=== PATIENT | female | born 1970 | race African-American/Black ===

== ENCOUNTER 2023-08-16 13:48 | Emergency (ER) | payer SELFPAY ==
--- OUTSIDE RECORDS SUMMARY | 2023-08-16 13:51 | XMS REPORT | Continuity of Care Document ---
:1970 Author Organization [facility] t Address [address] [place] [address] Care Team Providers Name Role Phone MOJGAN, MICHAEL Primary Care Physician Unavailable VENKATA DONAHUE Attending Clinician Unavailable MICHAEL ULRICH Attending Clinician Unavailable SHANE ABRAHAM Attending Clinician Unavailable RADHA MILIAN Attending Clinician Unavailable YOUNG RIOS Attending Clinician Unavailable NIMCO HANEY Attending Clinician Unavailable GANESH CARRASCO Attending Clinician Unavailable WILFREDO OLSEN Attending Clinician Unavailable JOCELYN ENGEL Attending Clinician Unavailable IMANI BEE Attending Clinician Unavailable BERNICE JEFFREY Attending Clinician Unavailable CECILIA JAIMES Attending Clinician Unavailable FERMIN RANDALL Attending Clinician Unavailable ROSAS MORALEZ Attending Clinician Unavailable ABBY KAMINSKI Attending Clinician Unavailable DONNY HERRON Attending Clinician Unavailable BO SHARP Attending Clinician Unavailable OZIEL FRAIRE Attending Clinician Unavailable BARBAAR FLORES Attending Clinician Unavailable Payers Payer Name Policy Type Policy Number Effective Date Expiration Date S ource Problems This patient has no known problems. Allergies, Adverse Reactions, Alerts This patient has no known allergies or adverse reactions. Medications This patient has no known medications. Procedures This patient has no known procedures. Encounters Start End Encounter Admission Attending Care Care Encounter Source Date/Time Date/Time Type Type Clinicians Facility Department ID 2023-08-16 2023-08-16 Outpatient DEEPTHI LACEY [id number] [place] 11:01:01 11:01:01 [id number] Philippe 2023-08-14 2023-08-14 Outpatient SFA SFA [facility] 14:38:38 14:38:38 [id number] Abiquiu 2023-08-09 2023-08-09 Outpatient SFA SFA Iam 08:50:19 08:50:19 [id number] F Abiquiu 2023-08-04 2023-08-04 Outpatient SFA SFA Iam 13:15:56 13:15:56 [id number] F Abiquiu 2023-07-31 2023-08-03 [facility] [id number] [place] 14:13:00 14:06:00 [facility] 2023-07-02 2023-07-31 [facility] [id number] [place] 13:35:00 09:45:00 [facility] 2023-07-24 2023-07-24 Outpatient MOJGAN [facility] [id number] [facility] 00:00:00 00:00:00 MICHAEL 2023-07-14 2023-07-14 Emergency [facility] [id number] [place] 19:16:00 22:21:00 [facility] 2023-07-14 2023-07-14 Emergency [facility] [id number] [place] 20:28:10 21:06:27 [facility] 2023-07-14 2023-07-14 Emergency [facility] [id number] [place] 20:16:27 21:04:59 [facility] 2023-07-12 2023-07-12 [facility] [id number] [place] 08:37:10 09:19:50 [facility] 2023-07-07 2023-07-07 Outpatient [facility] [id number] [facility] 09:19:55 09:29:08 2023-07-04 2023-07-04 Outpatient BLANCA [facility] [id number] [facility] 08:33:14 09:28:11 YOUNG 2023-06-25 2023-07-02 [facility] [id number] [place] 23:26:15 12:12:[address] [facility] 2023-06-13 2023-06-13 Outpatient FOSTER-JONAH [facility] [id number] [facility] 00:00:00 00:00:00 DA, GANESH 2023-06-12 2023-06-12 Outpatient MOJGAN, [facility] [id number] [facility] 00:00:00 00:00:00 MICHAEL 2023-06-09 2023-06-09 Outpatient NCHONKO, [facility] [id number] [facility] 09:55:37 09:55:37 YOUNG 2023-04-25 2023-04-25 Outpatient MOJGAN, [facility] [id number] [facility] 00:00:00 00:00:00 MICHAEL 2023-04-25 2023-04-25 Outpatient FOSTER-JONAH [facility] [id number] [facility] 00:00:00 00:00:00 DA, GANESH 2023-04-17 2023-04-17 Outpatient MOJGAN, [facility] [id number] [facility] 13:13:55 13:13:55 MICHAEL 2023-04-17 2023-04-17 Outpatient FOSTER-JONAH [facility] [id number] [facility] 13:13:21 13:13:21 DA, GANESH 2023-04-11 2023-04-11 Outpatient MOJGAN, [facility] [id number] [facility] 15:36:28 15:36:28 MICHAEL 2023-03-24 2023-03-24 Outpatient MOJGAN, [facility] [id number] [facility] 00:00:00 00:00:00 MICHAEL 2023-02-28 2023-02-28 Outpatient NCHONKO, [facility] [id number] [facility] 00:00:00 00:00:00 YOUNG 2023-02-28 2023-02-28 Outpatient MOJGAN, [facility] [id number] [facility] 00:00:00 00:00:00 MICHAEL 2023-02-27 2023-02-27 Outpatient FOSTER-JONAH [facility] [id number] [facility] 14:10:51 14:10:51 DA, GANESH 2023-02-27 2023-02-27 Outpatient NCHONKO, [facility] [id number] [facility] 00:00:00 00:00:00 YOUNG 2023-02-03 2023-02-03 Outpatient FOSTER-JONAH [facility] [id number] [facility] 00:00:00 00:00:00 DA, GANESH 2023-01-24 2023-01-24 Outpatient MOJGAN, [facility] [id number] [facility] 15:51:13 15:51:13 MICHAEL 2023-01-02 2023-01-02 Outpatient MOJGAN, [facility] [id number] [facility] 13:04:49 15:10:19 MICHAEL 2022-12-21 2022-12-21 Outpatient NCHONKO, [facility] [id number] [facility] 00:00:00 00:00:00 YOUNG 2022-12-16 2022-12-16 Outpatient NCHONKO, [facility] [id number] [facility] 00:00:00 00:00:00 YOUNG 2022-12-15 2022-12-15 Outpatient [facility] [id number] [facility] 13:46:33 14:07:32 2022-12-15 2022-12-15 Outpatient NCHONKO, [facility] [id number] [facility] 00:00:00 00:00:00 YOUNG 2022-11-17 2022-11-17 Outpatient NCHONKO, [facility] [id number] [facility] 14:56:20 16:04:15 [facility] 2022-11-17 2022-11-17 Outpatient MOJGAN, [facility] [id number] [facility] 00:00:00 00:00:00 [facility] 2022-09-22 2022-09-22 Outpatient VIPULANANDA [facility] [id number] [place] 00:00:00 00:00:00 [facility] 2022-09-01 2022-09-01 Out[facility] [id number] [place] 00:00:00 00:00:00 [facility] 2022-08-05 2022-08-05 Outpatient BEE, [facility] [id number] [place] 00:00:00 00:00:00 [facility] 2022-07-14 2022-07-14 Outpatient [facility], [facility] [id number] [place] 00:00:00 00:00:00 [facility] 2022-07-05 2022-07-05 Outpatient GILOTRA, [facility] [id number] [facility] 08:11:22 09:07:09 MUD 2022-06-29 2022-06-29 Outpatient MOJGAN, [facility] [id number] [facility] 00:00:00 00:00:00 [facility] 2022-06-27 2022-06-27 Outpatient MOJGAN, [facility] [id number] [facility] 00:00:00 00:00:00 [facility] 2022-06-20 2022-06-20 Outpatient MOJGAN, [facility] [id number] [facility] 00:00:00 00:00:00 [facility] 2022-06-13 2022-06-13 Outpatient 3 [facility] [id number] [place] 10:55:27 11:05:23 [facility] 2022-06-13 2022-06-13 Outpatient [facility] [id number] [place] 10:55:27 11:05:23 [facility] 2022-06-13 2022-06-13 [facility] [id number] [place] 08:25:42 10:29:04 [facility] 2022-06-13 2022-06-13 [facility] [id number] [place] 00:00:00 00:00:00 [facility] 2022-06-10 2022-06-10 Outpatient PRAKASH, FERMIN [facility] [id number] [place] 00:00:00 00:00:00 [facility] 2022-06-06 2022-06-06 Outpatient MOJGAN, [facility] [id number] [place] 07:28:36 23:59:00 [facility] 2022-06-01 2022-06-01 Outpatient MOJGAN, [facility] [id number] [facility] 13:42:07 15:26:04 [facility] 2022-05-29 2022-05-29 Emergency NAOMY, [facility] [id number] [place] 13:20:00 18:36:00 [facility]22-[facility] 2022-05-28 Emergency YAMILEX, [facility] [id number] [place] 22:27:00 06:50:00 [facility] 2022-05-27 2022-05-27 Emergency GOPAL, [facility] [id number] [place] 22:54:24 23:50:46 [facility] 2022-05-27 2022-05-27 Outpatient MOJGAN, [facility] [id number] [facility] 00:00:00 00:00:00 MICHAEL 2022-05-25 2022-05-25 Outpatient MOJGAN, [facility] [id number] [facility] 08:42:32 09:19:15 MICHAEL 2022-05-23 2022-05-23 Outpatient MOJGAN, [facility] [id number] [facility] 00:00:00 00:00:00 MICHAEL 2022-05-20 2022-05-20 Outpatient [facility] [id number] [facility] 00:00:00 00:00:00 2022-05-18 2022-05-18 Outpatient MOJGAN, [facility] [id number] [facility] 13:19:11 14:20:10 MICHAEL 2022-04-14 2022-04-14 [facility] [id number] [place] 16:04:09 23:59:00 [facility] 2022-03-25 2022-03-25 [facility] [id number] [place] 10:12:01 23:59:00 [facility] 2022-03-22 2022-03-22 [facility] [id number] [place] 17:13:56 23:59:00 [facility] 2022-01-18 2022-01-18 [facility] [id number] [place] 15:00:45 23:59:00 [facility] 2021-12-21 2021-12-[address] [facility] [id number] [place] 00:00:00 09:53:00 [facility] 2021-12-21 2021-12-21 [facility]patient [facility] [id number] [place] 13:38:58 23:59:00 [facility] Results Test Description Test Time Test Comments Results Result Comments Source HEPATITIS PANEL, DIAGNOSTIC 2023-08-15 05:48:21 Test Item Value Reference Range Interpretation Comme nts HEPATITIS A TOTAL AB (test NON-REACTIVE NON-REACTIVE code = 2725) HEPATITIS B SURF AG (test NON-REACTIVE NON-REACTIVE code = 2739) HEP B CORE TOTAL AB (test NON-REACTIVE NON-REACTIVE code = 2729) HEPATITIS B SURFACE AB (test REACTIVE NON-REACTIVE A code = 2737) HEPATITIS C ANTIBODY (test NON-REACTIVE NON-REACTIVE code = 4675) INTERPRETATION HEPATITIS A: (NOTE) Hepatitis A serology shows (test code = 2552) no eviden ce of past exposure to orcurrent in fection with hepatitis A vir us; patient not immune tohe patitis A. INTERPRETATION HEPATITIS B: (NOTE) Hepatitis B serology (test code = 61570) consiste nt with immunity to hepatitis Bfrom previous hepatitis B vac cination. INTERPRETATION HEPATITIS C: (NOTE) Hepatitis C serology shows (test code = 50589) no evide nce of exposure to hepatitisC viru s at this time. It can ta ke up to 12 months after ex posure tothe hepatitis C vir us for antibodies to b ecome detectable in t he blood in certain patient s. UNLESS OTHERWISE INDIC ATED, ALL TESTING PERFORM [facility], [facility]. [address] [place] [address] 9337 LABORATORY DIRE CTOR: HUI DEVINE M.D. CLIA NUMBER [id number] CAP ACCREDITATION N O. [id number] COMPREHENSIVE METABOLIC [id number] 06:20:07 Test Item Value Reference Range Interpretation Comments GLUCOSE (test code = 2217) 136 MG/DL 70-99 H BUN (test code = 2208) 10 MG/DL 6-20 CREATININE (test code = 2214) 0.83 MG/DL 0.60-1.30 eGFR (2020 CKD-EPI) (test code 83 ML/MIN/1.73 >60 = 95674) CALC BUN/CREAT (test code = 12 RATIO -2234) SODIUM (test code = 2231) 139 MEQ/L 133-146 POTASSIUM (test code = 2228) 4.4 MEQ/L 3.5-5.4 CHLORIDE (test code = 2215) 103 MEQ/L 95-107 CARBON DIOXIDE (test code = 25 MEQ/L -2205) CALCIUM (test code = 2209) 9.4 MG/DL 8.5-10.5 PROTEIN, TOTAL (test code = 6.8 G/DL 6.1-8.3 2228) ALBUMIN (test code = 220) 4.3 G/DL 3.5-5.2 CALC GLOBULIN (test code = 2.5 G/DL 1.9-3.7 2239) CALC A/G RATIO (test code = 1.7 RATIO 1.0-2.6 2233) BILIRUBIN, TOTAL (test code = 0.6 MG/DL <=1.2 2206) ALKALINE PHOSPHATASE (test 922 U/L 40-133 H code = 2203) AST (test code = 2218) 79 U/L 9-40 H ALT (test code = 2219) 241 U/L 5-40 H LIPID [id number] 06:20:07 Test Item Value Reference Range Interpretation Comments CHOLESTEROL (test 217 MG/DL <200 H code = 2210) TRIGLYCERIDES (test 177 MG/DL <150 H code = 2232) HDL CHOLESTEROL (test 57 MG/DL >39 code = 0) CALC LDL CHOL (test 129 MG/DL <100 H NOTE: C ALCULATED LDL code = 223) IS BASED ON ALEJANDRA-CEE METHOD WHICHINCLUDES ADJUSTABLE TRIGLYCERIDE:VL DL CHOLESTEROL RAT IO.THIS FACTOR VARIES B Y MEASURED TRIGLY CERIDE AND NON-HDLCHOL ESTEROL CONCENTRATIONS WITH INCREASED CALCU LATED LDL SEENIN HIGH ER TRIGLYCERIDE OR LOWER NON-HDL SPECIME NS. FOR MOREINFORMATION , SEE CLIENT ANNOUNCE MENT AT [email or web address] [email or web address] RATIO LDL/HDL 2.26 RATIO <3.22 UNLESS O THERWISE (test code = 223) INDICATED , [facility], I MD. [address] [place] [address] 18484 MARCELA FERRARI DIRECTOR: Stephanie COLLADO CECILIA NUMBER [id number] CAP ACCREDITATION N O. [id number] HIV 1+2 Ab+HIV1 p24 Ag SerPl Ql [id number] 17:23:16 Test Item Value Reference Range Interpretation Comments HIV 1+2 Ab+HIV1 p24 Ag SerPl Ql IA NEGATIVE Negative (test code = 99440-4) [facility]
[2023-08-16] MEDS ORDERED: NA CHLORIDE 0.9% 1,000 ML ONE (14:58)
[2023-08-16 15:01] LABS: Absolute Lymphocytes (CBC) 1.3 K/uL (0.7-4.9); Lymphocytes % 26.9 % (15.3-44.8); MCV 90.6 fL (80-100); Platelets 407 thou/uL (152-406); RBC Red Blood Cell Count 3.42 M/uL (3.86-4.86)
[2023-08-16 15:16] LABS: Albumin 3.3 g/dL (3.4-5.0); Bilirubin Total 0.4 mg/dL (0.2-1.0); Magnesium 2.2 mg/dL (1.6-2.4); Potassium 3.8 mEq/L (3.5-5.1); Protein, Total 6.8 g/dL (6.4-8.2)
--- NOTE | 2023-08-16 15:28 | RAD REPORT ---
EXAM DESCRIPTION: USExtremity Venous Uni Ltd08/16/2023 3:09 pm CLINICAL HISTORY: Right leg pain COMPARISON: None. FINDINGS: Right common femoral, superficial femoral, greater saphenous, popliteal and right posterio r tibial veins are compressible and demonstrate augmentation. Doppler demonstrates good flow. Grayscale, color and spectral analysis performed on all vessels IMPRESSION: No evidence of deep venous thrombosis involving the right lower extremity.
[2023-08-16 16:54] LABS: Blood Morphology Comment NOT SEEN (NOT SEEN); Platelet Estimate INCR; White Blood Cell Scan OK (OK)
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
--- NOTE | 2023-08-16 17:28 | EDPHYS ---
Physician Documentation [facility] Name: Jesusita Beltran Age: 53 yrs Sex: Female : 1970 Arrival Date: 08/16/2023 Time: 13:48 Bed 5 Private MD: ED Physician Sampson Shukla HPI: 08/16 20:31 This 53 yrs old Black Female presents to ER via Ambulatory with complaints of Headache, rt Leg Pain. 20:31 Patient presents to the ED with a pain behind the right knee starting this morning. She rt describes the numbness, is not pressure, she is able to hold completely now. Does report a headache that is off-and-on. Denies other acute complaints at this time, symptoms are mild in severity, no other aggravating or alleviating factors. Historical: - Allergies: 14:09 No Known Allergies; iw - Social history:: Smoking status: . ROS: 20:31 Constitutional: Negative for fever, chills, and weight loss, Cardiovascular: Negative rt for chest pain, palpitations, and edema, Respiratory: Negative for shortness of breath, cough, wheezing, and pleuritic chest pain, Abdomen/GI: Negative for abdominal pain, nausea, vomiting, diarrhea, and constipation, Skin: Negative for injury, rash, and discoloration, Neuro: Negative for headache, weakness, numbness, tingling, and seizure, Psych: Negative for depression, anxiety, suicide ideation, homicidal ideation, and hallucinations, 20:31 MS/extremity: Positive for pain, Negative for injury or acute deformity, 20:31 Neuro: Positive for headache, Negative for altered mental status, Exam: 20:31 Constitutional: This is a well developed, well nourished patient who is awake, alert, rt and in no acute distress. Head/Face: Normocephalic, atraumatic. Chest/axilla: Normal chest wall appearance and motion. Nontender with no deformity. No lesions are appreciated. Cardiovascular: Regular rate and rhythm with a normal S1 and S2. No gallops, murmurs, or rubs. Normal PMI, no JVD. No pulse deficits. Respiratory: Lungs have equal breath sounds bilaterally, clear to auscultation and percussion. No rales, rhonchi or wheezes noted. No increased work of breathing, no retractions or nasal flaring. Abdomen/GI: Soft, non-tender, with normal bowel sounds. No distension or tympany. No guarding or rebound. No evidence of tenderness throughout. Skin: Warm, dry with normal turgor. Normal color with no rashes, no lesions, and no evidence of cellulitis. MS/ Extremity: Pulses equal, no cyanosis. Neurovascular intact. Full, normal range of motion. Neuro: Awake and alert, GCS 15, oriented to person, place, time, and situation. Cranial nerves II-XII grossly intact. Motor strength 5/5 in all extremities. Sensory grossly intact. Cerebellar exam normal. Normal gait. Psych: Awake, alert, with orientation to person, place and time. Behavior, mood, and affect are within normal limits. 20:34 ECG was reviewed by the Attending Physician. rt Vital Signs: 14:06 BP 120 / 83; Pulse 94; Resp 16; Temp 98.2; Pulse Ox 100% on R/A; Weight 72.57 kg; iw Height 5 ft. 6 in. ; Pain 8/10; 17:31 BP 153 / 88; Pulse 87; Resp 16; Pulse Ox 98% on R/A; iw 14:06 Body Mass Index 25.82 (72.57 kg, 167.64 cm) iw 14:06 Pain Scale: Adult iw MDM: 14:13 Patient medically screened. rt 20:31 Differential diagnosis: DVT, muscle spasm, neuropathy. Data reviewed: vital signs, rt nurses notes, lab test result(s), radiologic studies. I considered the following discharge prescriptions or medication management in the emergency department Medications were administered in the Emergency Department. See MAR. Test considered but Not performed: CT: Symptoms not consistent with acute CVA, the patient also reports a chronic headache that is similar to this. Do not believe that neuroimaging is needed at this time. Counseling: I had a detailed discussion with the patient and/or guardian regarding the historical points, exam findings, and any diagnostic results supporting the discharge/admit diagnosis, lab results, radiology results, the need for outpatient follow up, to return to the emergency department if symptoms worsen or persist or if there are any questions or concerns that arise at home. 08/16 14: Order name: CBC with Diff; Complete Time: 17:10 rt 08/16 14: Order name: CMP; Complete Time: 15:47 rt 11/22 14:22 Order name: Magnesium; Complete Time: 15:47 rt 08/16 14:22 Order name: CPK; Complete Time: 15:47 rt 08/16 16:54 Order name: CBC Smear Scan; Complete Time: 17:10 EDMS 08/16 14:22 Order name: Extremity Venous Uni Ltd US; Complete Time: 15:33 rt 08/16 14:22 Order name: EKG; Complete Time: 14:22 rt 08/16 14:22 Order name: EKG - Nurse/Tech; Complete Time: 14:47 rt EC:34 Rate is 83 beats/min. Rhythm is regular, Normal Sinus Rhythm with No ectopy. QRS [place] rt is Normal. MT interval is normal. QRS interval is normal. QT interval is normal. No Q waves. T waves are Normal. No ST changes noted. Administered Medications: 14:46 Drug: NS 0.9% IV 1000 ml IV at 1 bolus Per protocol; 1000 mL bolus Route: IV; Rate: 1 cm10 bolus; Site: right forearm; 17:36 Drug: Ibuprofen PO 600 mg PO once Route: PO; iw Disposition Summary: 08/16/23 17:26 Discharge Ordered Notes: Location: Home rt Problem: new rt Symptoms: have improved rt Condition: Stable rt Diagnosis - Pain in right knee rt Followup: rt - With: Private Physician - When: 2 - 3 days - Reason: Discharge Instructions: - Discharge Summary Sheet rt - Acute Knee Pain, Adult rt Forms: - Medication Reconciliation Form rt - Thank You Letter rt - Antibiotic Education rt - Prescription Opioid Use rt - Patient Portal Instructions rt - Leadership Thank You Letter rt Prescriptions: - Hydrocortisone 0.5 % Topical Cream - apply 1 application TOPICAL route every 12 hours As needed; 30 gram; Refills: rt 0, Product Selection Permitted Signatures: Dispatcher [employer] Consuelo Diaz RN RN iw June Harvey RN RN ap3 Sampson Shukla MD MD rt Bere Foreman RN RN cm10
[2023-08-16] MEDS ORDERED: IBUPROFEN 200 MG TAB PO ONE (17:49)
[2023-08-16 17:52] VITALS: BP 120/83; TEMP 98.2; O2SAT 100
--- NOTE | 2023-08-21 17:01 | EKG ---
Test Date: 2023-08-16 Test Time: 14:41:25 Interactive Art Director: CHERRY MEASUREMENT RESULTS: Intervals: Rate: 83 PA: 142 QRSD: 82 QT: 404 QTc: 474 [place]: P: 39 PA: 142 QRS: 77 T: 80 INTERPRETIVE STATEMENTS: Normal sinus rhythm Normal ECG No previous ECG available for comparison Electronically Signed On 08-21-23 16:54:17 CORPORATE SAFETY COORDINATOR by Hoang Ramos
== END 2023-08-16 17:37 | disposition home or self-care (01) ==
LOC: ER 13:48
DX: M25.561 Pain in right knee (principal); R51.9 Headache, unspecified
CPT/HCPCS: 36415; 80053; 82550; 83735; 85025; 93005; 93971; 99284; J7030

== ENCOUNTER 2023-08-20 09:30 | Inpatient (IN) | payer SELFPAY ==
--- OUTSIDE RECORDS SUMMARY | 2023-08-20 09:33 | XMS REPORT | Continuity of Care Document ---
:1970 Author Organization [facility] t Address [address] [place] [address] Care Team Providers Name Role Phone MOJGAN, MICHAEL Primary Care Physician Unavailable VENKTAA DONAHUE Attending Clinician Unavailable MICHAEL ULRICH Attending [...] Clinician Unavailable FERMIN RANDALL Attending Clinician Unavailable ROASS MORALEZ Attending Clinician Unavailable ABBY KAMINSKI Attending Clinician Unavailable DONNY HERRON Attending Clinician Unavailable BO SHARP Attending Clinician Unavailable OZIEL FRAIRE Attending Clinician Unavailable BARBARA FLORES Attending Clinician Unavailable Payers Payer Name [...] Clinicians Facility Department ID 2023-08-16 2023-08-16 Outpatient [facility] [id number] [place] 11:01:01 11:01:01 [id number] [facility] [place] 2023-08-14 2023-08-14 Outpatient [facility] 14:38:38 14:38:38 [id number] [facility] [place] 2023-08-09 2023-08-09 Outpatient SFA [facility] 08:50:19 08:50:19 [id number] [facility] [place] 2023-08-04 2023-08-04 Outpatient SFA [facility] 13:15:56 13:15:56 [id number] [facility] [place] 2023-07-31 2023-08-03 [facility] [id number] [place] 14:13:00 14:06:00 [facility] 2023-07-02 2023-07-31 [facility] [id number] [place] 13:35:00 09:45:00 [facility] 2023-07-24 2023-07-24 Outpatient MOJGAN [facility] [id number] [facility] 00:00:00 00:00:00 MICHAEL 2023-07-14 2023-07-14 [facility] [id number] [place] 19:16:00 22:21:00 [facility] 2023-07-14 2023-07-14 Emergency [facility] [id number] [place] 20:28:10 21:06:27 [facility] 2023-07-14 2023-07-14 Emergency [facility] [id number] [place] 20:16:27 21:04:59 [facility] 2023-07-12 2023-07-12 [facility] [id number] [place] 08:37:10 09:19:50 [facility] 2023-07-07 2023-07-07 Outpatient [facility] [id number] [facility] 09:19:55 09:29:08 2023-07-04 2023-07-04 Outpatient BLANCA [facility] [id number] [facility] 08:33:14 09:28:11 YOUNG 2023-06-25 2023-07-02 [facility] [id number] [place] 23:26:15 12:12:00 [facility] 2023-06-13 2023-06-13 Outpatient FOSTER-JONAH [facility] [id number] [facility] 00:00:00 00:00:00 DA, GANESH 2023-06-12 2023-06-12 Outpatient MOJGAN, [facility] [id number] [facility] 00:00:00 00:00:00 MICHAEL 2023-06-09 2023-06-09 Outpatient NCHONKO, [facility] [id number] [place] 09:55:37 09:55:37 [facility] 2023-04-25 2023-04-25 Outpatient MOJGAN, [facility] [id number] [facility] 00:00:00 00:00:00 MICHAEL 2023-04-25 2023-04-25 Outpatient FOSTER-JONAH [facility] [id number] [facility] 00:00:00 00:00:00 DA, GANESH 2023-04-17 2023-04-17 Outpatient MOJGAN, [facility] [id number] [facility] 13:13:55 13:13:55 MICHAEL 2023-04-17 2023-04-17 Outpatient [facility]ER[facility]JONAH [facility] [id number] [facility] 13:13:21 13:13:21 DA, GANESH 2023-04-11 2023-04-11 Outpatient MOJGAN, [facility] [id number] [facility] 15:36:28 15:36:28 MICHAEL 2023-03-24 2023-03-24 Outpatient MOJGAN, [facility] [id number] [facility] 00:00:00 00:00:00 MICHAEL 2023-02-28 2023-02-28 Outpatient NCHONKO, [facility] [id number] [facility] 00:00:00 00:00:00 YOUNG 2023-02-28 2023-02-28 Outpatient MOJGAN, [facility] [id number] [facility] 00:00:00 00:00:00 MICHAEL 2023-02-27 2023-02-27 Outpatient FOSTER[facility]JONAH [facility] [id number] [facility] 14:10:51 14:10:51 DA, GANESH 2023-02-27 2023-02-27 Outpatient NCHONKO, [facility] [id number] [facility] 00:00:00 00:00:00 YOUNG 2023-02-03 2023-02-03 Outpatient FOSTER-JONAH [facility] [id number] [facility] 00:00:00 00:00:00 DA, GANESH 2023-01-24 2023-01-24 Outpatient MOJGAN, [facility] [id number] [facility] 15:51:13 15:51:13 MICHAEL 2023-01-02 2023-01-02 Outpatient MOJGAN, [facility] [id number] [facility] 13:04:49 15:10:19 [facility] 2022-12-21 2022-12-21 Outpatient NCHONKO, [facility] [id number] [facility] 00:00:00 00:00:00 YOUNG 2022-12-16 2022-12-16 Outpatient NCHONKO, [facility] [id number] [facility] 00:00:00 00:00:00 YOUNG 2022-12-15 2022-12-15 Outpatient [facility] [id number] [facility] 13:46:33 14:07:32 2022-12-15 2022-12-15 Outpatient NCHONKO, [facility] [id number] [facility] 00:00:00 00:00:00 YOUNG 2022-11-17 2022-11-17 Outpatient NCHONKO, [facility] [id number] [facility] 14:56:20 16:04:15 YOUNG 2022-11-17 2022-11-17 Outpatient MOJGAN, [facility] [id number] [facility] 00:00:00 00:00:00 [facility] 2022-09-22 2022-09-22 Outpatient VIPULANANDA [facility] [id number] [place] 00:00:00 00:00:00 [facility] 2022-09-01 2022-09-01 Outpatient [facility], [facility] [id number] [place] 00:00:00 00:00:00 [facility] 2022-08-05 2022-08-05 Outpatient CRISTAL, [facility] [id number] [place] 00:00:00 00:00:00 [facility] 2022-07-14 2022-07-14 Outpatient MAREN, [facility] [id number] [place] 00:00:00 00:00:00 [facility] 2022-07-05 2022-07-05 Outpatient GILOTRA, [facility] [id number] [facility] 08:11:22 09:07:09 MUD 2022-06-29 2022-06-29 Outpatient MOJGAN, [facility] [id number] [facility] 00:00:00 00:00:00 [facility] 2022-06-27 2022-06-27 Outpatient MOJGAN, [facility] [id number] [facility] 00:00:00 00:00:00 [facility] 2022-06-20 2022-06-20 Outpatient MOJGAN, [facility] [id number] [facility] 00:00:00 00:00:00 [facility] 2022-06-13 2022-06-13 Outpatient 3 [facility] [id number] [place] 10:55:27 11:05:23 [facility] 2022-06-13 2022-06-13 Outpatient [facility] [id number] [place] 10:55:27 11:05:23 [facility] 2022-06-13 2022-06-13 [facility] [id number] [place] 08:25:42 10:29:04 [facility] 2022-06-13 2022-06-13 [facility] [id number] [place] 00:00:00 00:00:00 [facility] 2022-06-10 2022-06-10 Outpatient FERMIN RANDALL [facility] [id number] [place] 00:00:00 00:00:00 [facility] 2022-06-06 2022-06-06 Outpatient MOJGAN, [facility] [id number] [place] 07:28:36 23:59:00 [facility] 2022-06-01 2022-06-01 Outpatient MOJGAN, [facility] [id number] [facility] 13:42:07 15:26:04 [facility] 2022-05-29 2022-05-29 Emergency NAOMY, [facility] [id number] [place] 13:20:00 18:36:00 ROSAS Rebolledo 2022-05-27 2022-05-28 Emergency YAMILEX, [facility] [id number] [place] 22:27:00 06:50:00 [facility] 2022-05-27 2022-05-27 Emergency GOPAL, [facility] [id number] [place] 22:54:24 23:50:46 [facility] 2022-05-27 2022-05-27 Outpatient MOJGAN, [facility] [id number] [facility] 00:00:00 00:00:00 MICHAEL 2022-05-25 2022-05-25 Outpatient MJOGAN, [facility] [id number] [facility] 08:42:32 09:19:15 MICHAEL 2022-05-23 2022-05-23 Outpatient MOJGAN, [facility] [id number] [facility] 00:00:00 00:00:00 [facility] 2022-05-20 2022-05-20 Outpatient [facility] [id number] [facility] 00:00:00 00:00:00 2022-05-18 2022-05-18 Outpatient MOJGAN, [facility] [id number] [facility] 13:19:11 14:20:10 [facility] 2022-04-14 2022-04-14 [facility] [id number] [place] 16:04:09 23:59:00 [facility] 2022-03-25 2022-03-25 [facility] [id number] [place] 10:12:01 23:59:00 [facility] 2022-03-22 2022-03-22 [id number] [place] 17:13:56 23:59:00 [facility] 2022-01-18 2022-01-18 [id number] [place] 15:00:45 23:59:00 [facility] 2021-12-21 2021-12-22 Emergency [facility] [id number] [place] 00:00:00 09:53:00 [facility] 2021-12-21 2021-12-21 Outpatient [facility] [id number] [place] 13:38:58 23:59:00 [facility] Results Test Description Test Time [...] (NOTE) Hepatitis B serology (test code = 97236) consiste nt with immunity to hepatitis Bfrom previous hepatitis B vac cination. INTERPRETATION HEPATITIS C: (NOTE) Hepatitis C serology shows (test code = 88405) no evide nce of exposure to hepatitisC viru s at this time. It can ta ke up to 12 months after ex posure tothe hepatitis C vir us for antibodies to b ecome detectable in t he blood in certain patient s. UNLESS OTHERWISE INDIC ATED, ALL TESTING PERFORM ED AT [facility]. [address] [place] [address] LABORATORY DIRE CTOR: HUI DEVINE M.D. CLIA NUMBER [id number] CAP ACCREDITATION N O. [id number] COMPREHENSIVE METABOLIC [id number] 06:20:07 Test Item Value Reference Range Interpretation Comments GLUCOSE (test code = 2217) 136 MG/DL 70-99 H BUN (test code = 2208) 10 MG/DL 6-20 CREATININE (test code = 2214) 0.83 MG/DL 0.60-1.30 eGFR (2020 CKD-EPI) (test code 83 ML/MIN/1.73 >60 = 11987) CALC BUN/CREAT (test code = 12 RATIO -2234) SODIUM (test code = 2231) 139 MEQ/L 133-146 POTASSIUM (test code = 2228) 4.4 MEQ/L 3.5-5.4 CHLORIDE (test code = 2215) 103 MEQ/L 95-107 CARBON DIOXIDE (test code = 25 MEQ/L -2205) CALCIUM (test code = 2209) 9.4 MG/DL 8.5-10.5 PROTEIN, TOTAL (test code = 6.8 G/DL 6.1-8.3 2228) ALBUMIN (test code = 2201) 4.3 G/DL 3.5-5.2 CALC GLOBULIN (test code = 2.5 G/DL 1.9-3.7 2239) CALC A/G RATIO (test code = 1.7 RATIO 1.0-2.6 2233) BILIRUBIN, TOTAL (test code = 0.6 MG/DL <=1.2 2206) ALKALINE PHOSPHATASE (test 922 U/L 40-133 H code = 2204) AST (test code = 2218) 79 U/L 9-40 H ALT (test code = 2219) 241 U/L 5-40 H LIPID [id number] 06:20:07 Test Item Value Reference Range Interpretation Comments CHOLESTEROL (test 217 MG/DL <200 H code = 2210) TRIGLYCERIDES (test 177 MG/DL <150 H code = 2232) HDL CHOLESTEROL (test 57 MG/DL >39 code = 2220) CALC LDL CHOL (test 129 MG/DL <100 H NOTE: C ALCULATED LDL code = 2237) IS BASED ON ALEJANRDA-CEE METHOD WHICHINCLUDES ADJUSTABLE TRIGLYCERIDE:VL DL CHOLESTEROL RAT IO.THIS FACTOR VARIES B Y MEASURED TRIGLY CERIDE AND NON-HDLCHOL ESTEROL CONCENTRATIONS WITH INCREASED CALCU LATED LDL SEENIN HIGH ER TRIGLYCERIDE OR LOWER NON-HDL SPECIME NS. FOR MOREINFORMATION , SEE CLIENT ANNOUNCE MENT AT [email or web address] RISK RATIO LDL/HDL 2.26 RATIO <3.22 UNLESS O THERWISE (test code = 2238) INDICATED , ALL TESTING PERFORMED AT [facility] [place] [place] [address] MARCELA FERRARI DIRECTOR: Stephanie COLLADO CECILIA NUMBER [id number] CAP ACCREDITATION N O. [id number] HIV 1+2 Ab+HIV1 p24 Ag SerPl Ql [id number] 17:23:16 Test Item Value Reference Range Interpretation Comments HIV 1+2 Ab+HIV1 p24 Ag SerPl Ql IA NEGATIVE Negative (test code = 63713-1) [facility]
[2023-08-20] MEDS ORDERED: NA CHLORIDE 0.9% 1,000 ML ONE (10:02)
--- NOTE | 2023-08-20 10:44 | RAD REPORT ---
EXAM DESCRIPTION: CT - Head Brain Wo Cont - 08/20/2023 10:15 am CLINICAL HISTORY: DIZZINESS COMPARISON: No comparisons TECHNIQUE: Noncontrast head CT images were obtained without IV contrast. Multiplanar reformats were generated and reviewed. All CT scans are performed using dose optimization technique as appropriate and may include automated exposure control or mA/KV adjustment according to patient size. FINDINGS: No intracranial hemorrhage, mass, or edema. Midline structures are unremarkable. Normal ventricular caliber for age. Quesada-white matter differentiation is preserved, without evidence of acute infarct. No abnormal extra- axial fluid collections. Mastoid air cells and visualized portions of the paranasal sinuses are clear. No acute bony findings. IMPRESSION: No evidence of an acute intracranial process.
--- NOTE | 2023-08-20 10:46 | RAD REPORT ---
EXAM DESCRIPTION: Ruth Ann Single View08/20/2023 10:23 am CLINICAL HISTORY: dizzy COMPARISON: No comparisons TECHNIQUE: Portable AP view of the chest. FINDINGS: Kyphotic posture somewhat limits evaluation. The lungs are clear. No pneumothorax or eff usion. The cardiomediastinal contours are unremarkable. IMPRESSION: No acute cardiopulmonary process.
[2023-08-20 11:34] LABS: Absolute Lymphocytes (CBC) 1.3 K/uL (0.7-4.9); Hematocrit 33.3 % (36.0-45.0); Lymphocytes % 18.4 % (15.3-44.8); MCV 90.6 fL (80-100); MPV 7.4 fL (7.6-11.3); Platelets 471 thou/uL (152-406); RBC Red Blood Cell Count 3.67 M/uL (3.86-4.86)
[2023-08-20 11:42] LABS: Protime INR 1.05
[2023-08-20 11:56] LABS: Albumin 2.9 g/dL (3.4-5.0); Bilirubin Direct 0.3 mg/dL (0-0.2); Bilirubin Indirect, Calculated 0.2 mg/dL (0.2-0.8); Bilirubin Total 0.5 mg/dL (0.2-1.0); Magnesium 2.4 mg/dL (1.6-2.4); Potassium 4.2 mEq/L (3.5-5.1); Protein, Total 6.2 g/dL (6.4-8.2); Troponin High Sensitivity 25.4 pg/mL (<58.9)
[2023-08-20 12:05] LABS: Blood Morphology Comment NOT SEEN (NOT SEEN); Platelet Estimate ADEQ; White Blood Cell Scan OK (OK)
--- NOTE | 2023-08-20 12:12 | ER ---
Nurse's Notes [facility] Name: Jesusita Beltran Age: 53 yrs Sex: Female : 1970 Arrival Date: 08/20/2023 Time: 09:30 Bed 6 Private MD: None, None Diagnosis: Acute kidney failure, unspecified;Dehydration;Hypotension, unspecified;Hypotension due to drugs;Weakness;Syncope Near Presentation: 08/20 09:35 Chief complaint: EMS states: Pt from [facility] rehab, c/o intermittent ph dizziness/weakness x approx 2 weeks, BP low at 77/53, hx of HTN, pt states that the facility checks er BP before giving meds and have been giving her half of her normal dose, denies N/V/D, pain or fever. other VSS, HR 95, T 98.7, 98% RA, BGL 91. Coronavirus screen: Vaccine status: Patient reports receiving the 2nd dose of the covid vaccine. Ebola Screen: No symptoms or risks identified at this time. Initial Sepsis Screen: Does the patient meet any 2 criteria? No. Patient's initial sepsis screen is negative. Does the patient have a suspected source of infection? No. Patient's initial sepsis screen is negative. Risk Assessment: Do you want to hurt yourself or someone else? Patient reports no desire to harm self or others. Onset of symptoms was August 20, 2023. 09:35 Acuity: KRISTI 2 ph 09:35 Method Of Arrival: EMS: [facility] Triage Assessment: 09:43 General: Appears in no apparent distress. comfortable, Behavior is calm, cooperative, ph appropriate for age, Denies fever, feeling ill. Pain: Denies pain. Neuro: Level of Consciousness is awake, alert, obeys commands, Oriented to person, place, time, situation, Reports dizziness, weakness intermittent x 2 weeks. Cardiovascular: Reports fatigue, lightheadedness, Denies chest pain, nausea, palpitations, shortness of breath, syncope, vomiting, Capillary refill < 3 seconds in bilateral fingers Patient's skin is warm and dry. Respiratory: Airway is patent Respiratory effort is even, unlabored, Respiratory pattern is regular, symmetrical. GI: No signs and/or symptoms were reported involving the gastrointestinal system. Patient currently denies abdominal pain, diarrhea, nausea, vomiting. Derm: Skin is pink, warm \T\ dry. Historical: - Allergies: 09:41 PENICILLINS; ph - PMHx: 09:41 Hypertensive disorder; ph - Immunization history:: Adult Immunizations unknown. - Social history:: Smoking status: Patient reports the use of cigarette tobacco products, denies chronic smoking, but will smoke occasionally, Reported history of juuling and/or vaping. - Family history:: not pertinent. Screenin:42 [facility] ED Fall Risk Assessment (Adult) History of falling in the last 3 months, ph including since admission No falls in past 3 months (0 pts). Abuse screen: Denies threats or abuse. Denies injuries from another. Nutritional screening: No deficits noted. Tuberculosis screening: No symptoms or risk factors identified. Assessment: 10:07 General: SEE TRIAGE ASSESSMENT. ph 11:30 Reassessment: Patient appears in no apparent distress at this time. Patient and/or hb family updated on plan of care and expected duration. Pain level reassessed. Patient is alert, oriented x 3, equal unlabored respirations, skin warm/dry/pink. 12:18 Reassessment: Patient appears in no apparent distress at this time. Patient and/or ph family updated on plan of care and expected duration. Pain level reassessed. Patient is alert, oriented x 3, equal unlabored respirations, skin warm/dry/pink. Pt taken to CT via stretcher. Vital Signs: 09:35 BP 83 / 40; Pulse 81; Resp 18; Temp 98.7; Pulse Ox 96% on R/A; Weight 72.57 kg; Height ph 5 ft. 6 in. ; Pain 0/10; 09:42 BP 90 / 62; ph 10:08 BP 120 / 72; Pulse 94; Resp 18; Pulse Ox 98% ; ph 12:35 BP 105 / 69; Pulse 90; Resp 18; Pulse Ox 100% on R/A; ph 09:35 Body Mass Index 25.82 (72.57 kg, 167.64 cm) ph 09:35 Pain Scale: Adult ph Llewellyn Coma Score: 11:13 Eye Response: spontaneous(4). Motor Response: obeys commands(6). Verbal Response: bobo oriented(5). Total: 15. NIH Stroke Scale Scores: 11:13 NIHSS Score: 0 bobo ED Course: :33 Patient arrived in ED. as 09:34 None, None is Private Physician. as 09:40 Harley Harrell MD is Attending Physician. bobo 09:41 Triage completed. ph 09:42 Patient has correct armband on for positive identification. Bed in low position. Call ph light in reach. Side rails up X2. Client placed on continuous cardiac and pulse oximetry monitoring. NIBP monitoring applied. Door closed. Noise minimized. Warm blanket given. 09:43 Arm band placed on Patient placed in an exam room, on a stretcher, on furnace mechanic helper, ph on pulse oximetry. 10:07 Shireen Wu, RN is Primary Nurse. ph 10:08 EKG done, by ED staff, reviewed by Harley Harrell MD. Missed attempt(s): 20 gauge in ph left antecubital area. Bleeding controlled, band aid applied, catheter tip intact. Inserted saline lock: 22 gauge in left antecubital area, using aseptic technique. 10:17 CT Head Brain wo Cont In Process Unspecified. EDMS 10:25 XRAY Chest (1 view) In Process Unspecified. EDMS 12:07 Fredi Atkinson MD is Hospitalizing Provider. bobo 12:17 US Extremity Venous W Compression Jesus In Process Unspecified. EDMS 12:25 CT Chest Abdomen Pelvis W/O Contrast In Process Unspecified. EDMS 19:29 Primary Nurse role handed off by Shireen Wu RN bp 19:29 Odilon Ward, KAMILAH is Primary Nurse. bp Administered Medications: 10:15 Drug: NS 0.9% IV 1000 ml IV at 1 bolus Per protocol; 1000 mL bolus Route: IV; Rate: 1 ph bolus; Site: left antecubital; Medication: 09:42 VIS not applicable for this client. ph Outcome: 12:12 Decision to Hospitalize by Provider. bobo 21:56 Patient left the ED. bp NIH Stroke Scale - NIH Stroke Score Date: 08/20/2023 Time: 11:13 Total Score = 0 10. Dysarthria (speech clarity - read or repeat words) - 0(Normal) 11. Extinction and Inattention (visual/tactile/auditory/spatial/personal) - 0(No abnormality) 1a. Level of Consciousness (LOC) - 0(Alert) 1b. Level of Consciousness (LOC) (Month \T\ Age) - 0(Both) 1c. LOC Commands (Open \T\ Closes Eyes/Door Captain) - 0(Both) 2. Best Gaze (Lateral Gaze Paresis) - 0(Normal) 3. Visual Field Loss - 0(No visual loss) 4. Facial Palsy - 0(Normal) 5a. Left Arm: Motor (10-second hold) - 0(No drift) 5b. Right Arm: Motor (10-second hold) - 0(No drift) 6a. Left Leg: Motor (5-second hold - always test supine) - 0(No drift) 6b. Right Leg: Motor (5-second hold - always test supine) - 0(No drift) 7. Limb Ataxia (finger/nose \T\ heel/flores - test with eyes open) - 0(Absent) 8. Sensory Loss (pinprick arms/legs/face) - 0(Normal) 9. Best Language: Aphasia (description/naming/reading) - 0(No aphasia) Initials: bobo Signatures: Dispatcher [employer] Harley Boucher MD MD cha Martinez, Amelia as Hall, Patricia, RN RN Ruthie Tong RN RN hb Peltier, Brian, RN RN bp Corrections: (The following items were deleted from the chart) 09:42 09:41 Allergies: No Known Allergies; [facility]
--- NOTE | 2023-08-20 12:12 | EDPHYS ---
Physician Documentation [facility] Name: Jesusita Beltran Age: 53 yrs Sex: Female : 1970 Arrival Date: 08/20/2023 Time: 09:30 Bed 6 Private MD: None, None ED Physician Harley Harrell HPI: 08/20 09:49 This 53 yrs old Black Female presents to ER via EMS with complaints of Dizziness. bobo 09:49 The patient presents with dizziness, generalized weakness, lightheadedness. Onset: The bobo symptoms/episode began/occurred just prior to arrival, today. Context: occurred rehab. Modifying factors: The symptoms are alleviated by nothing, the symptoms are aggravated by nothing. Associated signs and symptoms: The patient has no apparent associated signs or symptoms. Severity of symptoms: At their worst the symptoms were moderate in the emergency department the symptoms are unchanged. Patient's baseline: Neuro: alert and fully oriented. The patient has experienced similar episodes in the past, a few times. Historical: - Allergies: 09:41 PENICILLINS; ph - PMHx: 09:41 Hypertensive disorder; ph - Immunization history:: Adult Immunizations unknown. - Social history:: Smoking status: Patient reports the use of cigarette tobacco products, denies chronic smoking, but will smoke occasionally, Reported history of juuling and/or vaping. - Family history:: not pertinent. ROS: 09:49 Constitutional: Negative for fever, chills, and weight loss, Eyes: Negative for injury, bobo pain, redness, and discharge, ENT: Negative for injury, pain, and discharge, Neck: Negative for injury, pain, and swelling, Cardiovascular: Negative for chest pain, palpitations, and edema, Respiratory: Negative for shortness of breath, cough, wheezing, and pleuritic chest pain, Abdomen/GI: Negative for abdominal pain, nausea, vomiting, diarrhea, and constipation, Back: Negative for injury and pain, : Negative for injury, bleeding, discharge, and swelling, MS/Extremity: Negative for injury and deformity, Skin: Negative for injury, rash, and discoloration, Psych: Negative for depression, anxiety, suicide ideation, homicidal ideation, and hallucinations, Allergy/Immunology: Negative for hives, rash, and allergies, Endocrine: Negative for neck swelling, polydipsia, polyuria, polyphagia, and marked weight changes, Hematologic/Lymphatic: Negative for swollen nodes, abnormal bleeding, and unusual bruising, 09:49 Neuro: Positive for dizziness, weakness, Exam: 09:49 Constitutional: This is a well developed, well nourished patient who is awake, alert, bobo and in no acute distress. Head/Face: Normocephalic, atraumatic. Eyes: Pupils equal round and reactive to light, extra-ocular motions intact. Lids and lashes normal. Conjunctiva and sclera are non-icteric and not injected. Cornea within normal limits. Periorbital areas with no swelling, redness, or edema. ENT: Nares patent. No nasal discharge, no septal abnormalities noted. Tympanic membranes are normal and external auditory canals are clear. Oropharynx with no redness, swelling, or masses, exudates, or evidence of obstruction, uvula midline. Mucous membranes moist. Neck: Trachea midline, no thyromegaly or masses palpated, and no cervical lymphadenopathy. Supple, full range of motion without nuchal rigidity, or vertebral point tenderness. No Meningismus. Chest/axilla: Normal chest wall appearance and motion. Nontender with no deformity. No lesions are appreciated. Cardiovascular: Regular rate and rhythm with a normal S1 and S2. No gallops, murmurs, or rubs. Normal PMI, no JVD. No pulse deficits. Respiratory: Lungs have equal breath sounds bilaterally, clear to auscultation and percussion. No rales, rhonchi or wheezes noted. No increased work of breathing, no retractions or nasal flaring. Abdomen/GI: Soft, non-tender, with normal bowel sounds. No distension or tympany. No guarding or rebound. No evidence of tenderness throughout. Back: No spinal tenderness. No costovertebral tenderness. Full range of motion. Skin: Warm, dry with normal turgor. Normal color with no rashes, no lesions, and no evidence of cellulitis. MS/ Extremity: Pulses equal, no cyanosis. Neurovascular intact. Full, normal range of motion. Neuro: Awake and alert, GCS 15, oriented to person, place, time, and situation. Cranial nerves II-XII grossly intact. Motor strength 5/5 in all extremities. Sensory grossly intact. Cerebellar exam normal. Normal gait. Psych: Awake, alert, with orientation to person, place and time. Behavior, mood, and affect are within normal limits. 09:49 Musculoskeletal/extremity: DVT Exam: No signs of deep vein thrombosis. no pain, no swelling, no tenderness, negative Homans' sign noted on exam, no appreciated bluish discoloration, no erythema, no increased warmth, 11:14 ECG was reviewed by the Attending Physician. bobo Vital Signs: 09:35 BP 83 / 40; Pulse 81; Resp 18; Temp 98.7; Pulse Ox 96% on R/A; Weight 72.57 kg; Height ph 5 ft. 6 in. ; Pain 0/10; 09:42 BP 90 / 62; ph 10:08 BP 120 / 72; Pulse 94; Resp 18; Pulse Ox 98% ; ph 12:35 BP 105 / 69; Pulse 90; Resp 18; Pulse Ox 100% on R/A; ph 09:35 Body Mass Index 25.82 (72.57 kg, 167.64 cm) ph 09:35 Pain Scale: Adult ph NIH Stroke Scale Scores: 11:13 NIHSS Score: 0 bobo Maren Coma Score: 11:13 Eye Response: spontaneous(4). Motor Response: obeys commands(6). Verbal Response: bobo oriented(5). Total: 15. MDM: 09:40 Patient medically screened. bobo 09:51 Differential diagnosis: cardiac arrhythmia, CVA, generalized weakness, GI bleed, bobo hypovolemia, idiopathic dizziness, near-syncope, TIA, vertigo. Data reviewed: vital signs, nurses notes, lab test result(s), EKG, radiologic studies, CT scan, plain films. Consideration of Admission/Observation Escalation of care including admission/observation considered. I considered the following discharge prescriptions or medication management in the emergency department Medications were administered in the Emergency Department. See MAR. Independent interpretation of the following test(s) in the Emergency Department EKG: See my EKG interpretation above. Test considered but Not performed: Ultrasound no 2 d echo. Care significantly affected by the following chronic conditions: Hypertension. 08/20 09:42 Order name: Basic Metabolic Panel; Complete Time: 11:59 [facility] 08/20 09:42 Order name: CBC with Diff; Complete Time: 12:52 [facility] 08/20 09:42 Order name: LFT's; Complete Time: 11:59 [facility] 08/20 09:42 Order name: Magnesium; Complete Time: 11:59 [facility] 08/20 09:42 Order name: NT PRO-BNP; Complete Time: 11:59 [facility] 08/20 09:42 Order name: Troponin HS; Complete Time: 11:59 [facility] 08/20 09:42 Order name: Lipase; Complete Time: 11:59 [facility] 08/20 09:42 Order name: Urinalysis w/ reflexes [facility] 08/20 09:48 Order name: UDS [facility] 08/20 09:48 Order name: D-Dimer; Complete Time: 11:53 [facility] 08/20 09:48 Order name: PREGU [facility] 08/20 11:33 Order name: Protime (+INR); Complete Time: 11:53 EDMS 08/20 12:05 Order name: CBC Smear Scan; Complete Time: 12:52 EDMS 08/20 13:47 Order name: CBC with Automated Diff [facility] 08/20 13:47 Order name: CBC with Automated Diff EDMS 08/20 13:47 Order name: Comprehensive Metabolic Panel [facility] 08/20 13:47 Order name: Comprehensive Metabolic Panel [facility] 08/20 13:47 Order name: Magnesium [facility] 08/20 13:47 Order name: Magnesium [facility] 08/20 09:42 Order name: XRAY Chest (1 view); Complete Time: 10:56 [facility] 08/20 09:49 Order name: CT Head Brain wo Cont; Complete Time: 10:56 [facility] 08/20 11:58 Order name: US Extremity Venous W Compression Jesus; Complete Time: 13:27 [facility] 08/20 12:03 Order name: CT Chest Abdomen Pelvis W/O Contrast; Complete Time: 13:27 [facility] 08/20 09:42 Order name: EKG; Complete Time: 09:43 [facility] 08/20 09:42 Order name: Cardiac monitoring; Complete Time: 09:44 [facility] 08/20 09:42 Order name: EKG - Nurse/Tech; Complete Time: 11:40 [facility] 08/20 09:42 Order name: IV Saline Lock; Complete Time: 11:40 [facility] 08/20 09:42 Order name: Labs collected and sent; Complete Time: 11:40 [facility] 08/20 09:42 Order name: O2 Per Protocol; Complete Time: 09:44 [facility] 08/20 09:42 Order name: O2 Sat Monitoring; Complete Time: 09:44 [facility] EC:14 Rate is 92 beats/min. Rhythm is regular. QRS Hurst is Normal. CA interval is normal. QT bobo interval is normal. No Q waves. T waves are Normal. No ST changes noted. Clinical impression: NSR w/ Non-specific ST/T Changes and No evidence of ischemia. Interpreted by me. Reviewed by me. Administered Medications: 10:15 Drug: NS 0.9% IV 1000 ml IV at 1 bolus Per protocol; 1000 mL bolus Route: IV; Rate: 1 ph bolus; Site: left antecubital; Disposition Summary: 08/20/23 12:12 Hospitalization Ordered Notes: Hospitalization Status: Inpatient Admission bobo Provider: Fredi Atkinson cha Condition: Fair bobo Problem: new bobo Symptoms: have improved bobo Bed/Room Type: Standard bobo Location: Telemetry/MedSurg (observation)(08/20/23 19:44) rv1 Room Assignment: 221(08/20/23 19:44) rv1 Diagnosis - Acute kidney failure, unspecified bobo - Dehydration bobo - Hypotension, unspecified bobo - Hypotension due to drugs bobo - Weakness bobo - Syncope Near bobo Discharge Instructions: - Discharge Summary Sheet bobo - Dizziness bobo - Hypotension bobo - Near-Syncope bobo - Near-Syncope, [id number] bobo - Hypotension, [id number] bobo - Dizziness, [id number] bobo Forms: - Medication Reconciliation Form bobo - SBAR form bobo - Leadership Thank You Letter bobo NIH Stroke Scale - NIH Stroke Score Date: 08/20/2023 Time: 11:13 Total Score = 0 10. Dysarthria (speech clarity - read or repeat words) - 0(Normal) 11. Extinction and Inattention (visual/tactile/auditory/spatial/personal) - 0(No abnormality) 1a. Level of Consciousness (LOC) - 0(Alert) 1b. Level of Consciousness (LOC) (Month \T\ Age) - 0(Both) 1c. LOC Commands (Open \T\ Closes Eyes/Communications Assistant) - 0(Both) 2. Best Gaze (Lateral Gaze Paresis) - 0(Normal) 3. Visual Field Loss - 0(No visual loss) 4. Facial Palsy - 0(Normal) 5a. Left Arm: Motor (10-second hold) - 0(No drift) 5b. Right Arm: Motor (10-second hold) - 0(No drift) 6a. Left Leg: Motor (5-second hold - always test supine) - 0(No drift) 6b. Right Leg: Motor (5-second hold - always test supine) - 0(No drift) 7. Limb Ataxia (finger/nose \T\ heel/flores - test with eyes open) - 0(Absent) 8. Sensory Loss (pinprick arms/legs/face) - 0(Normal) 9. Best Language: Aphasia (description/naming/reading) - 0(No aphasia) Initials: [facility] Signatures: Dispatcher [employer] EDMS Harley Harrell MD MD cha Pinkerton, Shawna sp Hall, Patricia, RN RN ph Kelsey Al rv1 Corrections: (The following items were deleted from the chart) 09:42 09:41 Allergies: No Known Allergies; ph ph 11:33 09:43 PROTIME (+INR)+COAG.LAB.BRZ ordered. EDMS EDMS 12:10 11:59 Chest For PE Angio+CT.RAD.BRZ ordered. EDVT EDMS 14:21 12:12 Telemetry/MedSurg (Inpatient) bobo sp 14:21 12:12 [facility] sp 19:44 14:21 [facility] ER HOLD sp rv1 19:44 14:21 ERHOLD- sp rv1
--- NOTE | 2023-08-20 12:30 | P.HP ---
Certification for Inpatient Patient admitted to: Observation With expected LOS: <2 Midnights Practitioner: I am a practitioner with admitting privileges, knowledge of patient current condition, hospital course, and medical plan of care. Services: Services provided to patient in accordance with Admission requirements found in Title 42 Section 412.3 of the Code of Federal Regulations Patient History Date of Service: 08/20/23 Reason for admission: Acute kidney injury, hypotension, rash. History of Present Illness: 53-year-old female patient who has history of hypertension and recently developed a rash that was in the back area who had come to the emergency with complaint of low blood pressure. She reported that she developed a rash about a week ago and she has felt poorly since then. She noted her blood pressure was low so she spoke with her primary care doctor. Antihypertensive medication were held and patient continued to feel weak and had persistent rash and itching. She was given topical hydrocortisone treatment which relieved it significantly but she continues to feel uncomfortable so she decided to come to the ED. In the ED she had imaging studies done that revealed no acute abnormality because she had elevated D-dimer of 1900. Doppler ultrasound of the lower extremity revealed no DVT and CT of the chest/abdomen/pelvis did show skin thickening depicting possible cellulitis and some inflammation in the intestine. She reports that she also had significant poor appetite. She was found to have elevated creatinine 1.6 and she has significant elevation of eosinophil of 43% on white cell differential. She was admitted for inpatient care. Allergies Penicillins Allergy (Verified 08/20/23 14:14) UNK Review of Systems General: Weakness, Malaise Eyes: Unremarkable ENT: Unremarkable Respiratory: Unremarkable Cardiovascular: Unremarkable Gastrointestinal: As per HPI Genitourinary: Unremarkable Musculoskeletal: Unremarkable Integumentary: Rash Neurological: Unremarkable Physical Examination - Physical Exam General: Alert HEENT: Atraumatic Neck: Supple Respiratory: Normal air movement Cardiovascular: Regular rate/rhythm, Normal S1 S2 Gastrointestinal: Soft and benign Musculoskeletal: No swelling Integumentary: Skin lesion Neurological: Normal speech - Studies Laboratory Data (last 24 hrs) 08/20/23 08/20/23 08/20/23 11:22 11:22 11:22 WBC 7.20 Hgb 11.0 L Hct 33.3 L Plt Count 471 H PT 11.5 INR 1.05 Sodium 132 L Potassium 4.2 BUN 20 H Creatinine 1.61 H Glucose 84 Magnesium 2.4 Total Bilirubin 0.5 AST 25 ALT 80 H Alkaline Phosphatase 698 H Lipase 369 H 08/20/23 09:42 WBC Hgb Hct Plt Count PT Cancelled INR Cancelled Sodium Potassium BUN Creatinine Glucose Magnesium Total Bilirubin AST ALT Alkaline Phosphatase Lipase Assessment and Plan - Plan Acute kidney injury: Deemed secondary to ischemic ATN from poor oral intake and suspicion for interstitial nephritis since patient did have significant findings on labs. UA is pending. Will monitor symptomatology closely (would strongly consider nephrology consultation) Steroid therapy started for suspected allergy issues. Rash: Deemed secondary to suspected topical allergy however there are significant systemic findings. Empiric therapy with Solu-Medrol, Benadryl, Pepcid started. Will follow trend of clinical symptoms and evaluate patient on daily basis. There is no significant concerns for DRESS syndrome at this point. Eosinophilia: Management as above. History of hypertension: Patient is presently hypotensive, will follow closely. Hypotension: deemed secondary to allergy issues. IV hydration started with normal saline. Will follow trend of vital signs closely. Prophylaxis: SCDs for DVT prophylaxis CODE STATUS: Full code Disposition: Workup allergy issues and discharge her when she is medically cleared. Time taken for encounter is 50 minutes. - Advance Directives Does patient have a Living Will: No Does patient have a Durable POA for Healthcare: No
--- NOTE | 2023-08-20 13:05 | RAD REPORT ---
EXAM DESCRIPTION: CT - Chest Abd Pelvis Wo Con - 08/20/2023 12:23 pm CLINICAL HISTORY: DYSPNEA COMPARISON: Extrem Venous W Compress Jesus dated 08/20/2023 TECHNIQUE: Thin axial CT images of the chest, abdomen, and pelvis, performed without IV contrast. Mu ltiplanar reformats were generated and reviewed. All CT scans are performed using dose optimization technique as appropriate and may include automated exposure control or mA/KV adjustment according to patient size. FINDINGS: The lungs are clear.No pleural or pericardial effusion.No intrathoracic adenopathy. Mild p ericardial effusion. Heart is normal in size. The liver, spleen, pancreas, adrenal glands and kidneys are within normal limits. Few small gallstone s near the gallbladder neck. No bowel obstruction, free air, free fluid or abscess. Trace free pelvic fluid. Mild diffuse wall thi ckening throughout the colon. . No pathologic lymphadenopathy in the abdomen or pelvis. No worrisome osseous finding. Skin thickening and underlying mild fat stranding along the anterior midline upper chest wall, and th e adjacent medial breasts. IMPRESSION: Mild diffuse wall thickening throughout the colon, nonspecific, but could relate to mild ongoing colitis. Trace free pelvic fluid, could be physiologic. Few small gallstones. Skin thickening and underlying mild fat stranding along the anterior midline upper chest wall and adj acent medial breasts. Please correlate clinically for evidence of cellulitis. Mild pericardial effusion.
--- NOTE | 2023-08-20 13:16 | RAD REPORT ---
EXAM DESCRIPTION: US - Extrem Venous W Compress Jesus - 08/20/2023 12:15 pm CLINICAL HISTORY: Pain. Swelling COMPARISON: None. TECHNIQUE: Real-time sonographic evaluation of the bilateral lower extremity deep venous systems was performed. FINDINGS: Normal compressibility, flow augmentation, phasic flow and spontaneous flow is identified in both the left and right lower extremity deep venous systems. No intraluminal filling defects seen. IMPRESSION: No DVT in either lower extremity.
[2023-08-20] MEDS ORDERED: ONDANSETRON 4 MG/2 ML VIAL IV PRN (13:43)
[2023-08-20] MEDS: NA CHLORIDE 0.9% 1,000 ML IV SCH (14:00)
[2023-08-20 14:38] VITALS: BMI 25.8
[2023-08-20] MEDS ORDERED: METHYLPREDNISOLONE 40 MG INJ IV ONE (15:57)
[2023-08-20] MEDS ORDERED: DIPHENHYDRAMINE 25 MG TAB/CAP ONE (17:53)
[2023-08-20] MEDS ORDERED: METHYLPREDNISOLONE 40 MG INJ ONE (17:53)
[2023-08-20] MEDS ORDERED: ACETAMINOPHEN 325 MG TABLET ONE (18:37)
[2023-08-20] MEDS ORDERED: ONDANSETRON 4 MG (ODT) TAB ONE (18:38)
[2023-08-20] MEDS: ACETAMINOPHEN 325 MG TABLET PO PRN ×2 (18:39→23:54)
[2023-08-20] MEDS: DIPHENHYDRAMINE 25 MG TAB/CAP PO PRN (18:39)
[2023-08-21] MEDS: ACETAMINOPHEN 325 MG TABLET PO PRN ×3 (05:56→20:43)
[2023-08-21 06:19] LABS: Hematocrit 35.4 % (36.0-45.0); Lymphocytes % 21.5 % (15.3-44.8); MCV 89.9 fL (80-100); MPV 7.5 fL (7.6-11.3); Platelets 550 thou/uL (152-406); RBC Red Blood Cell Count 3.94 M/uL (3.86-4.86)
--- NOTE | 2023-08-21 06:25 | P.PN ---
Date of Service: 08/21/23 Subjective: Physical Exam: Vitals: reviewed GEN: Alert, oriented, NAD HEENT: Normal conjunctiva, sclera anicteric CV: Regular rate & rhythm, no edema Pulm: Nonlabored respiraitons, clear bilaterally ABD: Soft, nontender, nondistended MSK: No joint tenderness Integumentary: No rashes Neuro: Normal speech, normal affect Problem List: REINIER Deemed secondary to ischemic ATN Rash likely secondary to suspected topical allergy Eosinophilia hypotension h/o hypertension Plan: REINIER Deemed secondary to ischemic ATN from poor oral intake and suspicion for interstitial nephritis since patient did have significant findings on labs. UA is pending. Will monitor symptomatology closely would strongly consider nephrology consultation Steroid therapy started for suspected allergy issues. rash deemed secondary to suspected topical allergy however there are significant systemic findings. Will follow trend of clinical symptoms and evaluate patient on daily basis. There is no significant concerns for DRESS syndrome at this point. Continue benadryl Patient is presently hypotensive, will follow closely.
[2023-08-21 06:30] LABS: Albumin 2.7 g/dL (3.4-5.0); Bilirubin Total 0.4 mg/dL (0.2-1.0); Magnesium 2.2 mg/dL (1.6-2.4); Potassium 4.3 mEq/L (3.5-5.1); Protein, Total 5.6 g/dL (6.4-8.2)
[2023-08-21 07:39] LABS: Blood Morphology Comment NOT SEEN (NOT SEEN); Platelet Estimate INCR; White Blood Cell Scan OK (OK)
[2023-08-21] MEDS: ENOXAPARIN 40 MG/0.4 ML SQ SCH (08:57)
[2023-08-21] MEDS: DOCUSATE NA 100 MG CAP PO SCH ×2 (08:57→20:37)
[2023-08-21] MEDS: FAMOTIDINE 20 MG TAB PO SCH (08:57)
[2023-08-21] MEDS: NA CHLORIDE 0.9% 1,000 ML IV SCH ×3 (09:02→20:42)
[2023-08-21] MEDS: DIPHENHYDRAMINE 25 MG TAB/CAP PO PRN (09:46)
[2023-08-21 10:57] LABS: Troponin High Sensitivity 20.7 pg/mL (<58.9)
[2023-08-22] MEDS: ACETAMINOPHEN 325 MG TABLET PO PRN ×2 (03:19→08:44)
[2023-08-22] MEDS: NA CHLORIDE 0.9% 1,000 ML IV SCH ×2 (06:00→16:00)
[2023-08-22] MEDS: FAMOTIDINE 20 MG TAB PO SCH (08:42)
[2023-08-22] MEDS: DIPHENHYDRAMINE 25 MG TAB/CAP PO PRN ×2 (08:42→20:14)
[2023-08-22] MEDS: ENOXAPARIN 40 MG/0.4 ML SQ SCH (08:43)
[2023-08-22] MEDS: DOCUSATE NA 100 MG CAP PO SCH ×2 (08:54→20:15)
[2023-08-22 11:22] LABS: Absolute Lymphocytes (CBC) 2.1 K/uL (0.7-4.9); Lymphocytes % 22.8 % (15.3-44.8); MCV 90.1 fL (80-100); MPV 7.4 fL (7.6-11.3); Platelets 493 thou/uL (152-406); RBC Red Blood Cell Count 3.55 M/uL (3.86-4.86)
[2023-08-22 11:32] LABS: Albumin 2.3 g/dL (3.4-5.0); Bilirubin Total 0.3 mg/dL (0.2-1.0); Magnesium 2.4 mg/dL (1.6-2.4); Potassium 4.4 mEq/L (3.5-5.1); Protein, Total 4.9 g/dL (6.4-8.2)
--- NOTE | 2023-08-22 12:11 | RAD REPORT ---
EXAM DESCRIPTION: MRI - Cholangiogram - 08/22/2023 9:10 am CLINICAL HISTORY: choledocholithiasis COMPARISON: Chest Abd Pelvis Wo Con dated 08/20/2023 TECHNIQUE: Multiplanar multisequence MRI of the abdomen, obtained without IV contrast, utilizing M PIPE AND TANK FABRICATOR sequences. FINDINGS: Gallbladder is normally distended. Some tortuosity near the neck, with no appreciable fill ing defects. The small gallstones noted on the prior CT are not discretely visualized on this exam. No intrahepatic biliary ductal dilation. Common bile duct is normal in caliber, 3 millimeter. Motion artifact somewhat limits evaluation. No f illing defects to suggest choledocholithiasis. Smooth tapering at the ampulla. Main pancreatic duct i s not dilated. The visualized aspects of the liver, spleen, adrenal glands, pancreas, and kidneys are unremarkable. Visualized aspects of the bowel are unremarkable. No suspicious osseous lesions. Trace bilateral pleural effusions IMPRESSION: Normal MR cholangiogram. No intra or extrahepatic biliary ductal dilation, or evidence o f choledocholithiasis.
[2023-08-22 12:38] LABS: White Blood Cell Scan OK (OK)
[2023-08-22 12:39] LABS: Platelet Estimate ADEQ
[2023-08-22 12:40] LABS: Blood Morphology Comment NOT SEEN (NOT SEEN)
[2023-08-22] MEDS: carBAMazepine 200 MG TAB PO SCH (20:14)
[2023-08-22] MEDS: QUETIAPINE 100MG TAB PO SCH (20:14)
[2023-08-22] MEDS: TRAZODONE 150 MG TAB PO SCH (20:15)
[2023-08-23] MEDS: NA CHLORIDE 0.9% 1,000 ML IV SCH ×3 (02:00→22:00)
[2023-08-23] MEDS: DIPHENHYDRAMINE 25 MG TAB/CAP PO PRN ×2 (03:35→20:13)
[2023-08-23 07:55] LABS: Absolute Lymphocytes (CBC) 2.2 K/uL (0.7-4.9); Hematocrit 29.4 % (36.0-45.0); Lymphocytes % 24.6 % (15.3-44.8); MCV 90.2 fL (80-100); MPV 6.9 fL (7.6-11.3); Platelets 471 thou/uL (152-406); RBC Red Blood Cell Count 3.26 M/uL (3.86-4.86)
[2023-08-23 08:24] LABS: Albumin 2.4 g/dL (3.4-5.0); Bilirubin Total 0.3 mg/dL (0.2-1.0); Potassium 4.1 mEq/L (3.5-5.1)
[2023-08-23] MEDS: DOCUSATE NA 100 MG CAP PO SCH ×2 (09:00→20:14)
[2023-08-23] MEDS: LOSARTAN POTASSIUM 50 MG TABLET PO SCH (09:00)
[2023-08-23] MEDS: FAMOTIDINE 20 MG TAB PO SCH (09:17)
[2023-08-23] MEDS: ENOXAPARIN 40 MG/0.4 ML SQ SCH (09:17)
[2023-08-23] MEDS: carBAMazepine 200 MG TAB PO SCH ×2 (09:17→20:13)
[2023-08-23] MEDS: QUETIAPINE 25 MG TAB PO SCH (09:18)
[2023-08-23] MEDS: FLUOXETINE 20 MG CAP PO SCH (09:18)
[2023-08-23] MEDS ORDERED: METHYLPREDNISOLONE 125 MG INJ IV ONE (11:00)
[2023-08-23 15:03] LABS: Absolute Lymphocytes (CBC) 2.5 K/uL (0.7-4.9); Hematocrit 29.7 % (36.0-45.0); Lymphocytes % 25.1 % (15.3-44.8); MCV 89.9 fL (80-100); MPV 7.2 fL (7.6-11.3); Platelets 515 thou/uL (152-406)
[2023-08-23] MEDS: HYDROCORTISONE 1 % CREAM 30GM TOP SCH ×2 (15:11→20:14)
[2023-08-23 15:41] LABS: Albumin 2.7 g/dL (3.4-5.0); Bilirubin Total 0.3 mg/dL (0.2-1.0); Potassium 4.6 mEq/L (3.5-5.1); Protein, Total 5.8 g/dL (6.4-8.2)
[2023-08-23] MEDS ORDERED: METHYLPREDNISOLONE 40 MG INJ IV SCH (17:00)
[2023-08-23 17:15] LABS: Blood Morphology Comment NOT SEEN (NOT SEEN); Platelet Estimate INCR; Platelets, Giant PRESENT
[2023-08-23] MEDS: QUETIAPINE 100MG TAB PO SCH (20:13)
[2023-08-23] MEDS: TRAZODONE 150 MG TAB PO SCH (20:14)
[2023-08-24] MEDS ORDERED: METHYLPREDNISOLONE 40 MG INJ IV SCH (06:00)
[2023-08-24] MEDS: NA CHLORIDE 0.9% 1,000 ML IV SCH ×2 (08:00→21:00)
[2023-08-24] MEDS: HYDROCORTISONE 1 % CREAM 30GM TOP SCH ×3 (09:00→20:36)
[2023-08-24] MEDS: DOCUSATE NA 100 MG CAP PO SCH ×2 (09:00→20:36)
[2023-08-24] MEDS: ENOXAPARIN 40 MG/0.4 ML SQ SCH (09:20)
[2023-08-24] MEDS: LOSARTAN POTASSIUM 50 MG TABLET PO SCH (09:22)
[2023-08-24] MEDS: QUETIAPINE 25 MG TAB PO SCH (09:22)
[2023-08-24] MEDS: FAMOTIDINE 20 MG TAB PO SCH (09:22)
[2023-08-24] MEDS: carBAMazepine 200 MG TAB PO SCH (09:22)
[2023-08-24] MEDS: FLUOXETINE 20 MG CAP PO SCH (09:23)
[2023-08-24 13:49] LABS: Albumin 3.2 g/dL (3.4-5.0); Bilirubin Total 0.2 mg/dL (0.2-1.0); C-Reactive Protein 16.5 mg/L (<3.00); Potassium 4.4 mEq/L (3.5-5.1); Protein, Total 6.4 g/dL (6.4-8.2)
[2023-08-24 13:52] LABS: Absolute Lymphocytes (CBC) 3.2 K/uL (0.7-4.9); Hematocrit 25.3 % (36.0-45.0); Lymphocytes % 31.8 % (15.3-44.8); MCV 90.5 fL (80-100); MPV 6.9 fL (7.6-11.3); Platelets 488 thou/uL (152-406)
[2023-08-24] MEDS ORDERED: METHYLPREDNISOLONE 125 MG INJ IV ONE (14:30)
--- NOTE | 2023-08-24 15:33 | EKG ---
Test Date: 2023-08-20 Test Time: 10:01:34 Vulcanizer Operator: PH MEASUREMENT RESULTS: Intervals: Rate: 92 NE: 130 QRSD: 92 QT: 396 QTc: 489 [place]: P: 65 NE: 130 QRS: 82 T: 47 INTERPRETIVE STATEMENTS: Normal sinus rhythm Cannot rule out Anterior infarct, age undetermined Abnormal ECG Compared to ECG 08/16/2023 14:41:25 Myocardial infarct finding now present Electronically Signed On 08-24-23 15:17:54 WHEEL BORER by Hoang Ramos
[2023-08-24 17:05] LABS: Blood Morphology Comment NOT SEEN (NOT SEEN); Platelet Estimate INCR; White Blood Cell Scan OK (OK)
[2023-08-24 17:37] VITALS: O2SAT 97
[2023-08-24] MEDS: METHYLPREDNISOLONE 125 MG INJ IV SCH (18:00)
[2023-08-24] MEDS ORDERED: DIPHENHYDRAMINE 25 MG TAB/CAP PO ONE (19:04)
[2023-08-24] MEDS ORDERED: predniSONE 20 MG TAB PO ONE (19:04)
[2023-08-24] MEDS: QUETIAPINE 100MG TAB PO SCH (20:35)
[2023-08-24] MEDS: TRAZODONE 150 MG TAB PO SCH (20:36)
[2023-08-25] MEDS: METHYLPREDNISOLONE 125 MG INJ IV SCH ×3 (00:20→12:00)
[2023-08-25] MEDS: NA CHLORIDE 0.9% 1,000 ML IV SCH ×2 (04:00→14:00)
[2023-08-25 08:41] VITALS: TEMP 97.5
[2023-08-25] MEDS: DOCUSATE NA 100 MG CAP PO SCH (09:00)
[2023-08-25] MEDS: HYDROCORTISONE 1 % CREAM 30GM TOP SCH ×2 (09:17→14:00)
[2023-08-25] MEDS: LOSARTAN POTASSIUM 50 MG TABLET PO SCH (09:18)
[2023-08-25] MEDS: FLUOXETINE 20 MG CAP PO SCH (09:18)
[2023-08-25] MEDS: ENOXAPARIN 40 MG/0.4 ML SQ SCH (09:18)
[2023-08-25] MEDS: QUETIAPINE 25 MG TAB PO SCH (09:18)
[2023-08-25] MEDS: FAMOTIDINE 20 MG TAB PO SCH (09:18)
[2023-08-25] MEDS ORDERED: cloNIDine HCL 0.1 MG TAB PO ONE ×2 (09:22→13:00)
[2023-08-25] MEDS ORDERED: predniSONE 20 MG TAB PO ONE (09:45)
[2023-08-25] MEDS ORDERED: METOPROLOL TAR 25 MG TAB PO ONE (13:00)
[2023-08-25 16:24] VITALS: BP 147/81
[2023-08-25] MEDS ORDERED: METOPROLOL TAR 25 MG TAB PO SCH (18:00)
[2023-08-25] MEDS ORDERED: predniSONE 20 MG TAB PO SCH (21:00)
[2023-08-25] MEDS ORDERED: cloNIDine HCL 0.1 MG TAB PO SCH (21:00)
== END 2023-08-25 20:29 | disposition home or self-care (01) | DRG 684 ==
LOC: ER 09:30 → ERHOLD 13:43 → 2ND 20:32 → OBSVTOIN 08-23 15:40
PROVIDERS: ADMIT Internal Medicine Nephrology; ATTEND Hospitalist
DX: N17.0 Acute kidney failure with tubular necrosis (principal); I10 Essential (primary) hypertension; E86.0 Dehydration; D72.10 Eosinophilia, unspecified; L27.0 Generalized skin eruption due to drugs and medicaments taken internally; T49.95XA Adverse effect of unspecified topical agent, initial encounter; I95.2 Hypotension due to drugs; T50.905A Adverse effect of unspecified drugs, medicaments and biological substances, initial encounter; F17.210 Nicotine dependence, cigarettes, uncomplicated; Z88.0 Allergy status to penicillin
CPT/HCPCS: 36415; 70450; 71045; 71250; 74176; 74181; 80048; 80053; 80076; 80156; 82977; 83690; 83735; 83880; 84478; 84484; 85025; 85379; 85610; 86140; 93005; 93970; 99284; G0378; J1650; J2920; J2930; J7030; J7512; Q0162